=== PATIENT | female | born 1995 | race Caucasian/White ===

== ENCOUNTER 2019-12-15 10:09 | Emergency (ER) | payer OTHER, SELFPAY ==
[2019-12-15 11:27] LABS: #Eosinphils 0.1 thou/uL (0.0-0.7); #Lymphocytes 0.9 thou/uL (1.20-3.40); #Monocytes 0.7 thou/uL (0.11-0.59); #Neutrophils 6.3 thou/uL (1.40-6.50); %Basophils 0.4 % (0.0-1.0); %Eosinophils 0.9 % (0.0-10.0); %Lymphocytes 11.7 % (21.0-51.0); %Monocytes 8.3 % (0.0-10.0); %Neutrophils 78.8 % (42.0-75.0); Hemoglobin 13.6 g/dL (12.0-16.0); Mean Corpuscular HGB CONC 33.3 g/dL (32.0-36.0); Mean Corpuscular Hemoglobin 30.8 pg (27.0-31.0); Mean Corpuscular Volume 92.5 fL (78.0-98.0); Mean Platelet Volume 8.9 fL (7.4-10.4); Platelet Count 190 thou/uL (130-400); RBC Distribution Width 10.7 % (11.5-14.5); Red Blood Cell (RBC) Count 4.44 mill/uL (4.20-5.40)
--- NOTE | 2019-12-15 12:10 | ULT ---
Obstetric sonogram transabdominal imaging with duplex evaluation HISTORY: Early . Pelvic pain. FINDINGS: Urinary bladder is unremarkable. Gestational sac within the endometrial cavity contains a y olk sac and pole. Heart motion at 182 bpm. Measurements correlate with 8 weeks 6 days gestational age giving an estimated date of delivery of 07/20/2020. No evidence of subchorionic hemorrh age. No free fluid in the pelvis. Each ovary has normal appearance and demonstrates good color and spectral Doppler flow. IMPRESSION: Single viable intrauterine gestation. Estimated gestational age 8 weeks 6 days. No abnorm alities are demonstrated.
[2019-12-15] MEDS ORDERED: Proparacaine 0.5% Opth 15 ML BOT ONE (12:55)
[2019-12-15 14:45] LABS: Bilirubin Negative (Negative); Blood, Urine Negative (Negative); Clarity Clear (Clear); Glucose, Urine (Dipstick) Normal (Negative); Leukocyte Negative Leu/uL (Negative); Nitrite Negative (Negative); Protein, Urine (Dipstick) 20 mg/dL (Neg-Trace); Urobilinogen Normal mg/dL (Less than 2)
== END 2019-12-15 14:56 | disposition home or self-care (01) ==
LOC: ERS 10:09
DX: O26.891 Other specified pregnancy related conditions, first trimester (principal); R10.30 Lower abdominal pain, unspecified; O99.341 Other mental disorders complicating pregnancy, first trimester; F32.9 Major depressive disorder, single episode, unspecified; O99.331 Smoking (tobacco) complicating pregnancy, first trimester; F17.210 Nicotine dependence, cigarettes, uncomplicated; Z3A.09 9 weeks gestation of pregnancy
CPT/HCPCS: 36415; 76856; 81003; 85025; 86900; 86901; 93976